=== PATIENT | female | born 1960 | race Native Hawaiian/Other Pacific Islander ===

== ENCOUNTER 2017-08-14 13:06 | Inpatient (IN) | payer OTHER ==
[2017-08-14] VITALS (24 sets, daily range): BP systolic 80–114; BP diastolic 55–76; TEMP 97–98.3; Ht 162.6 cm; Wt 42.2 kg
[~2017-08-14] VITALS: Ht 162.6 cm; Wt 42.2 kg
[2017-08-14 14:58] LABS: PLATELET COUNT 126 K/uL (152-353)
[2017-08-14 15:08] LABS: POTASSIUM 4.1 mmol/L (3.6-5.2); SODIUM 133 mmol/L (136-145)
[2017-08-15] VITALS (51 sets, daily range): BP systolic 72–101; BP diastolic 42–66; TEMP 97.9–98.2
[2017-08-15 08:56] LABS: PLATELET COUNT 123 K/uL (152-353)
[2017-08-15 08:57] LABS: POTASSIUM 3.6 mmol/L (3.6-5.2); SODIUM 137 mmol/L (136-145)
[2017-08-15 17:12] LABS: POTASSIUM 3.4 mmol/L (3.6-5.2)
[2017-08-16] VITALS (38 sets, daily range): BP systolic 69–121; BP diastolic 32–78; TEMP 98.1–98.2
[2017-08-16 07:48] LABS: PLATELET COUNT 117 K/uL (152-353)
[2017-08-16 08:24] LABS: POTASSIUM 3.5 mmol/L (3.6-5.2); SODIUM 137 mmol/L (136-145)
[2017-08-17] VITALS (35 sets, daily range): BP systolic 74–121; BP diastolic 39–72; TEMP 98.1–98.7
[2017-08-17 07:02] LABS: PLATELET COUNT 118 K/uL (152-353)
[2017-08-17 07:14] LABS: POTASSIUM 3.3 mmol/L (3.6-5.2); SODIUM 136 mmol/L (136-145)
[2017-08-18] VITALS (39 sets, daily range): BP systolic 74–117; BP diastolic 50–74; TEMP 98–98.4
[2017-08-18 06:35] LABS: PLATELET COUNT 118 K/uL (152-353)
[2017-08-18 07:56] LABS: POTASSIUM 3.5 mmol/L (3.6-5.2); SODIUM 136 mmol/L (136-145)
[2017-08-19] VITALS (49 sets, daily range): BP systolic 77–129; BP diastolic 56–80; TEMP 97.6–98.4
[2017-08-19 06:18] LABS: PLATELET COUNT 119 K/uL (152-353)
[2017-08-19 06:21] LABS: POTASSIUM 3.3 mmol/L (3.6-5.2); SODIUM 136 mmol/L (136-145)
[2017-08-20] VITALS (39 sets, daily range): BP systolic 80–129; BP diastolic 51–80; TEMP 97.8–98.4
[2017-08-20 06:21] LABS: PLATELET COUNT 139 K/uL (152-353)
[2017-08-20 06:30] LABS: POTASSIUM 3.9 mmol/L (3.6-5.2); SODIUM 136 mmol/L (136-145)
[2017-08-21] VITALS (23 sets, daily range): BP systolic 80–110; BP diastolic 40–97; TEMP 98–99
[2017-08-21 06:11] LABS: PLATELET COUNT 138 K/uL (152-353)
[2017-08-21 06:45] LABS: SODIUM 135 mmol/L (136-145)
[2017-08-22] VITALS (14 sets, daily range): BP systolic 18–113; BP diastolic 55–81; TEMP 97–98.3
[2017-08-22 05:56] LABS: POTASSIUM 3.7 mmol/L (3.6-5.2); SODIUM 136 mmol/L (136-145)
[2017-08-22 06:27] LABS: PLATELET COUNT 143 K/uL (152-353)
[2017-08-23] VITALS: BP 91/58; TEMP 98.4
[2017-08-23 05:28] LABS: PLATELET COUNT 128 K/uL (152-353)
[2017-08-23 05:44] LABS: POTASSIUM 3.6 mmol/L (3.6-5.2); SODIUM 136 mmol/L (136-145)
[2017-08-23 08:00] VITALS: BP 92/52; TEMP 98.5
[2017-08-23 12:00] VITALS: BP 96/56; TEMP 98.5
[2017-08-23 16:00] VITALS: BP 112/72; TEMP 98.6
[2017-08-23 20:00] VITALS: BP 92/59; TEMP 98.4
[2017-08-24] VITALS: BP 95/63; TEMP 98.2
[2017-08-24 04:00] VITALS: BP 93/58; TEMP 98.4
[2017-08-24 08:31] VITALS: BP 107/68; TEMP 98.1
[2017-08-24 20:26] VITALS: BP 98/62; TEMP 98.2
[2017-08-25] VITALS: BP 97/61; TEMP 98.3
[2017-08-25 06:17] LABS: POTASSIUM 3.4 mmol/L (3.6-5.2); SODIUM 141 mmol/L (136-145)
[2017-08-25 06:26] LABS: PLATELET COUNT 121 K/uL (152-353)
[2017-08-25 07:56] VITALS: BP 101/62; TEMP 98.1
[2017-08-25 20:00] VITALS: BP 92/52; TEMP 98.3
[2017-08-26] VITALS: BP 113/53; TEMP 97.7
[2017-08-26 05:34] LABS: PLATELET COUNT 123 K/uL (152-353)
[2017-08-26 05:53] LABS: POTASSIUM 3.3 mmol/L (3.6-5.2); SODIUM 135 mmol/L (136-145)
[2017-08-26 06:27] VITALS: BP 100/63; TEMP 97.9
[2017-08-26 12:00] VITALS: BP 113/68; TEMP 98.1
[2017-08-26 16:00] VITALS: BP 109/68; TEMP 98.3
[2017-08-26 20:00] VITALS: BP 155/63; TEMP 97.9
[2017-08-27] VITALS: BP 108/70; TEMP 97.5
[2017-08-27 04:00] VITALS: BP 161/62; TEMP 98.1
[2017-08-27 06:40] LABS: PLATELET COUNT 110 K/uL (152-353)
[2017-08-27 06:46] LABS: POTASSIUM 3.4 mmol/L (3.6-5.2); SODIUM 136 mmol/L (136-145)
[2017-08-27 08:00] VITALS: BP 110/68; TEMP 98
[2017-08-27 12:00] VITALS: BP 100/64; TEMP 98
[2017-08-27 20:00] VITALS: BP 114/73; TEMP 98.2
[2017-08-27] MEDS ORDERED: [UNRECOGNIZED DRUG - CODE] PO (23:54)
[2017-08-27] MEDS ORDERED: FLUD0.1T PEG (23:54)
[2017-08-27] MEDS ORDERED: BUPR150T PEG (23:56)
[2017-08-27] MEDS ORDERED: MAGN400T4 PO (23:57)
[2017-08-27] MEDS ORDERED: POTA10CA3 PEG (23:57)
[2017-08-27] MEDS ORDERED: LEVO0.1T6 PEG (23:58)
[2017-08-27] MEDS ORDERED: PROZAC10 MG PEG (23:58)
[2017-08-27] MEDS ORDERED: ACID REDUCER150 M1 PEG (23:59)
[2017-08-28] MEDS ORDERED: MIRTAZAPINE7.5 MG PEG
[2017-08-28] MEDS ORDERED: LANTISEPTI2 EX (00:02)
[2017-08-28] MEDS ORDERED: JEVITY 1.5 PEG (00:04)
== END 2017-08-27 23:25 | disposition other institution (70) | DRG 315 ==
LOC: ICU 13:06 → MED/SURG 08-22 17:15
PROVIDERS: Emergency Medicine; ADMIT Family Medicine
PROC: 0D20XUZ Change Feeding Device in Upper Intestinal Tract, External Approach (ICD-10-PCS; principal; 2017-08-19)
PROC: 0J5 Subcutaneous Tissue and Fascia, Destruction (ICD-10-PCS; 2017-08-19)
DX: I95.89 Other hypotension (principal); E46 Unspecified protein-calorie malnutrition; F33.3 Major depressive disorder, recurrent, severe with psychotic symptoms; K94.23 Gastrostomy malfunction; K94.22 Gastrostomy infection; R55 Syncope and collapse; I95.0 Idiopathic hypotension; K59.09 Other constipation; M79.7 Fibromyalgia; E03.8 Other specified hypothyroidism; E87.6 Hypokalemia; Y83.3 Surgical operation with formation of external stoma as the cause of abnormal reaction of the patient, or of later complication, without mention of misadventure at the time of the procedure; Y73.8 Miscellaneous gastroenterology and urology devices associated with adverse incidents, not elsewhere classified; Y92.89 Other specified places as the place of occurrence of the external cause; B96.89 Other specified bacterial agents as the cause of diseases classified elsewhere; D69.6 Thrombocytopenia, unspecified
CPT/HCPCS: 36415; 74022; 80053; 80307; 82150; 82247; 82248; 82570; 82962; 83036; 83605; 83690; 83735; 83935; 84100; 84132; 84133; 84295; 84300; 84439; 84443; 84478; 84481; 84540; 85027; 87040; 87070; 87077; 87186; 87205; G0479; J1265; J2001; J2543; J2704; J3010; J3490